=== PATIENT | female | born 1980 | race Caucasian/White ===

== ENCOUNTER 2017-01-11 14:42 | Emergency (ER) | payer OTHER ==
[2017-01-11 14:48] VITALS: BP 107/64
--- NOTE | 2017-01-11 16:38 | UC ---
Throat Pain/Nasal Jalen HPI - HPI Summary HPI Summary: ST starting 3 days ago. ESQUEDA, nausea, chills, denies cough, rash or nasal congestion. Has school-aged children at home. - History of Current Complaint Chief Complaint: UCGeneralIllness Stated Complaint: ST,HEADACHE,NAUSEA Time Seen by Provider: 01/11/17 16:15 Hx Obtained From: Patient Hx Last Menstrual Period: 12/25/16 ?: No Onset/Duration: Gradual Onset, Lasting Days Severity: Moderate Cough: None Associated Signs & Symptoms: Negative: Sinus Discomfort, Nasal Discharge, Fever , Rash - Allergies/Home Medications Allergies/Adverse Reactions: Allergies Allergy/AdvReac Type Severity Reaction Status Date / Time benadryl Allergy Numbness Uncoded 07/26/14 08:46 PMH/Surg Hx/FS Hx/Imm Hx Previously Healthy: Yes - Surgical History Surgical History: Yes Surgery Procedure, Year, and Place: [facility]4 [facility]. WISDOM TEETH REMOVAL - Family History Known Family History: Positive: Hypertension - Social History Lives: With Family Alcohol Use: None Substance Use Type: None Smoking Status (MU): Never Smoked Tobacco - Immunization History Most Recent Influenza Vaccination: unknown Most Recent Tetanus Shot: 02/12/14 Most Recent Pneumonia Vaccination: none Review of Systems Constitutional: Fatigue Skin: Negative Eyes: Negative ENT: Sore Throat Respiratory: Negative Cardiovascular: Negative Gastrointestinal: Negative Genitourinary: Negative Motor: Negative Neurovascular: Negative Musculoskeletal: Negative Neurological: Headache Psychological: Negative All Other Systems Reviewed And Are Negative: Yes Physical Exam Triage Information Reviewed: Yes Appearance: Well-Appearing, No Pain Distress, Well-Nourished Vital Signs: Initial Vital Signs Temp 98.6 F 01/11/17 14:45 Pulse 66 01/11/17 14:45 Resp 16 01/11/17 14:45 BP 107/64 01/11/17 14:45 Pulse Ox 100 01/11/17 14:45 Vital Signs Reviewed: Yes Eye Exam: Normal Eyes: Positive: Conjunctiva Clear ENT: Positive: Hearing grossly normal, TMs normal, Tonsillar swelling, Tonsillar exudate Dental Exam: Normal Neck: Positive: Supple, Enlarged Nodes @ - tonsillar Respiratory Exam: Normal Respiratory: Positive: Chest non-tender, Lungs clear, Normal breath sounds, No respiratory distress, No accessory muscle use Cardiovascular Exam: Normal Cardiovascular: Positive: RRR, No Murmur Musculoskeletal Exam: Normal Neurological Exam: Normal Neurological: Positive: Alert Psychological Exam: Normal Skin Exam: Normal Throat Pain/Nasal Course/Dx - Differential Dx/Diagnosis Provider Diagnoses: strep tonsillitis Discharge - Discharge Plan Condition: Stable Disposition: HOME Prescriptions: Amoxicillin PO (*) [Amoxicillin 875 MG (*)] 875 mg PO BID #20 tab Patient Education Materials: Strep Throat (ED) Referrals: Sree Pratt MD [Primary Care Provider] -
== END 2017-01-11 16:47 | disposition home or self-care (01) ==
LOC: UCEAST 14:42
DX: J03.00 Acute streptococcal tonsillitis, unspecified (principal)
CPT/HCPCS: 87651; 99212; G0463

== ENCOUNTER 2018-04-03 10:50 | Emergency (ER) | payer OTHER ==
--- NOTE | 2018-04-03 11:28 | ED ---
Throat Pain/Nasal Congestion - HPI Summary HPI Summary: Pt. is a 37 y.o female who presents to the office for dental infection and facial swelling. Pt. states she started with dental pain earlier in the week and saw her dentist Saturday and was started on Amoxicillin. Pt. states that infection seemed to be improving until today when she woke up with left side facial swelling and pain. Pt. states she called her dentist and was referred to the ER. Pt. denies fever, chills, N.V. She has no past medical hx. Eating and touching affected area makes sxs worse. Nothing makes sxs better. - History of Current Complaint Chief Complaint: EDRashSkinAbscess Time Seen by Provider: 04/03/18 11:10 Hx Obtained From: Patient - Allergies/Home Medications Allergies/Adverse Reactions: Allergies Allergy/AdvReac Type Severity Reaction Status Date / Time diphenhydramine Allergy Numbness Verified 04/03/18 11:02 [From Benadryl] PMH/Surg Hx/FS Hx/Imm Hx Previously Healthy: Yes Endocrine/Hematology History: Reports: Hx Anemia - new onset, dx just today Denies: Hx Diabetes, Hx Thyroid Disease Cardiovascular History: Denies: Hx Hypertension, Hx Pacemaker/ICD Respiratory History: Denies: Hx Asthma, Hx Chronic Obstructive Pulmonary Disease (COPD) GI History: Denies: Hx Ulcer History: Reports: Hx Renal Disease - abnormal us and gfr 03/2014 acute renal failure dx Sensory History: Denies: Hx Contacts or Glasses, Hx Hearing Aid Opthamlomology History: Denies: Hx Contacts or Glasses Neurological History: Reports: Hx Headaches, Hx Migraine Denies: Hx Dementia, Hx Developmental Delay, Hx Nerve Disease, Hx Seizures, Hx Spinal Cord Injury, Hx Transient Ischemic Attacks (TIA) Psychiatric History: Denies: Hx Panic Disorder - Surgical History Surgery Procedure, Year, and Place: [facility]. WISDOM TEETH REMOVAL Hx Anesthesia Reactions: No Infectious Disease History: No Infectious Disease History: Denies: Hx Clostridium Difficile, Hx Hepatitis, Hx Human Immunodeficiency Virus (HIV), Hx of Known/Suspected MRSA, Hx Shingles, Hx Tuberculosis, Hx Known/ Suspected VRE, Hx Known/Suspected VRSA, History Other Infectious Disease, Traveled Outside the [place] in Last 30 Days - Family History Known Family History: Positive: Hypertension - Social History Occupation: Works From/At Home Lives: With Family Alcohol Use: None Substance Use Type: Reports: None Smoking Status (MU): Never Smoked Tobacco Review of Systems Constitutional: Negative Negative: Fever, Chills Eyes: Negative Positive: Dental Pain Gastrointestinal: Negative Negative: Vomiting, Nausea Skin: Negative All Other Systems Reviewed And Are Negative: Yes Physical Exam Triage Information Reviewed: Yes Vital Signs On Initial Exam: Initial Vitals Temp Pulse Resp BP Pulse Ox 98.2 F 74 16 122/79 100 04/03/18 10:58 04/03/18 10:58 04/03/18 10:58 04/03/18 10:58 04/03/18 10:58 Vital Signs Reviewed: Yes Appearance: Positive: Well-Appearing - Pt. sitting on bed in NAD. Obvious edema noted to the left lower jaw and neck Skin: Positive: Warm, Dry Head/Face: Positive: Other - Moderate amount of edema noted over the left mandible extending below the jaw line. Tender to palpation. Eyes: Positive: Normal, EOMI, Conjunctiva Clear Dental: Positive: Other - Pain on palpation to left last molar without obvious caries. No drainable abscess noted. Mild trismus. No swelling or pain under tongue. Neck: Positive: Supple Neurological: Positive: Normal, CN Intact II-III Psychiatric: Positive: Affect/Mood Appropriate Diagnostics - Vital Signs Vital Signs Temp Pulse Resp BP Pulse Ox 04/03/18 10:58 98.2 F 74 16 122/79 100 - Laboratory Result Diagrams: 04/03/18 11:48 04/03/18 11:48 Lab Statement: Any lab studies that have been ordered have been reviewed, and results considered in the medical decision making process. EENT Course/Dx - Course Course Of Treatment: Patient presenting for evaluation of dental abscess. She is afebrile well-appearing. I do not appreciate a drainable abscess on exam. She does however have swelling that extends under the jawline into her neck. She does have mild trismus as well. We'll obtain basic blood work and CT scan for further evaluation. Patient's given a dose of IV clindamycin and toradol. Labs are unremarkable. On re-exam pt. is resting comfortably. Results discussed. Will switch amoxicillin to clindamycin. Advised NSAID. To call oral sx today for an apt. To return to ER for increased swelling, high fevers, vomiting, difficulty opening mouth, swallowing/breathing. Pt. understands and agrees with plan. CT maxillary per radiology: IMPRESSION: SMALL LOCULATED FLUID COLLECTION ALONG THE LEFT MANDIBULAR BODY, AT THE LEVEL OF A PERIAPICAL ABSCESS OF THE LAST MANDIBULAR MOLAR CONSISTENT WITH AN ODONTOGENIC ABSCESS. THERE IS ASSOCIATED INFLAMMATORY CHANGES ADJACENT SOFT TISSUES. - Differential Diagnoses Differential Diagnoses: Allergic Rhinitis, Cellulitis, Dental Abscess, Dental Caries, Donnie's Angina, Periodontic Abscess - Diagnoses Provider Diagnoses: Dental abscess Discharge - Sign-Out/Discharge Documenting (check all that apply): Patient Departure - Discharge Plan Condition: Good Disposition: HOME Prescriptions: Clindamycin Cap(NF) [Clindamycin Cap 300 mg Cap(NF)] 300 mg PO Q6H #40 cap Naproxen [Naproxen 500 mg tab] 500 mg PO Q12H #20 tablet Patient Education Materials: Dental Abscess (ED) Referrals: Conrad Leach MD [Doctor of Dental Medicine] - Sree Pratt MD [Primary Care Provider] - Curt Lisa MD [Doctor of Dental Medicine] - Additional Instructions: Schedule a follow up appointment with oral surgery Stop amoxicillin and start clindamycin today as directed Naproxen as directed for pain and swelling Apply warm compress Return to ER for fever, vomiting, increased swelling, difficulty swallowing or if concerned - Billing Disposition and Condition Condition: GOOD Disposition: Home
[2018-04-03] MEDS ORDERED: Clindamycin 300 MG IVPREMIX(* 300 MG/50 ML SDV IVPB ONE (11:30)
[2018-04-03] MEDS ORDERED: Ketorolac INJ* 30 MG/ML 1 ML VIAL IV PUSH ONE (11:31)
--- OUTSIDE RECORDS SUMMARY | 2018-04-03 11:31 | XMS REPORT | Continuity of Care Document ---
:1980 External Reference #:[id number] Author Name Hailey Stein MD Address [address] [place] [address] Care Team Providers Name Role Phone Sree Pratt Primary Care Physician Unavailable Payers Type Date Identification Numbers Payment Provider Subscriber Expires: 2010 Policy Number: [id number] Medicaid Mom[employer] Rosi Juarez PayID: [id number] [address] [place] [address] Effective: 2010 Policy Number: [id number] [facility] Rosi Juarez PayID: [id number] [address] [address] [place] [address] Advance Directives Description No Information Available Problems Description No Active Problems Family History Date Family Member(s) Problem(s) Comments Father Hypercholesterolemia Father Hypertension Mother A&W Children 4 First Daughter A&W Second Daughter A&W Third Daughter A&W Fourth Daughter A&W Siblings 2 First Brother A&W Second Brother A&W Paternal Grandfather due to Diabetes () Paternal Grandmother Hypertension Paternal Grandmother due to Heart Disease () Maternal Grandfather due to Unknown Causes () Maternal Grandmother due to Old Age () Social History Type Date Description Comments Sex Unknown Education graduated college Marital Status Single Lives With Father Lives With Daughters Diet Healthy, Well Balanced 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 Tobacco Use Start: Unknown Never Smoked Cigarettes Smoking Status Reviewed: 03/21/18 Never Smoked Cigarettes ETOH Use Denies alcohol use Recreational Drug Use Denies Drug Use Tobacco Use Start: Unknown Patient has never smoked Exercise Type/Frequency Exercises regularly Seat Belt/Car Seat Always uses seat belt Currently Active Patient is currently sexually active Contraceptive Methods Current methods include tubal ligation STD's No STD History RICHY: 03/13/2014 Estimated Date of Based on 1st Delivery Ultrasound Allergies, Adverse Reactions, Alerts Date Description Reaction Status Severity Comments 08/30/2014 Benadryl Active numbness, head pain 07/11/2010 NKDA Inactive Medications Medication Date Status Form Strength Qnty SIG Indications Ordering Provider No Active 10/29/ Active Unknown Medications 2017 Levora 0.15/30 10/22/ Hx Tablets 0.15-30mg- 84tabs take 1 Phaelon (28) 2017 - mcg tab by MD Sarita mouth 2017 every day No Active 10/18/ Hx Unknown Medications 2015 - 2016 Dicloxacillin 05/25/ Hx Capsules 500mg 40caps 1 tablet Pita Sodium 2014 - by mouth Reynaga, 06/05/ every 6 CNM 2014 hours Oxycodone-Aceta 03/03/ Hx Tablets 5-325mg 25tabs take 1-2 Phaelon minophen 2014 - tabs by MD Sarita mouth 2013 q4-6 hours as needed for pain Ibuprofen 03/03/ Hx Tablets 600mg 30tabs take one Phaelon 2014 - tab by MD Sarita mouth 2013 every 6 hours as needed for pain Fluconazole 02/12/ Hx Tablets 150mg 1tabs take one Phaelon 2013 - tab by MD Sarita 02/14/ mouth now 2013 Clotrimazole 01/21/ Hx Cream 1% 15gm 1 gm by Shawn Cardenas 2013 - way of Gelber, 02/14/ vagina M.D. 2013 every night at bedtime x7 Macrobid 12/02/ Hx Capsules 100mg 14caps 1 by January 2013 - mouth Jump, 12/09/ twice a ANP-C 2013 day Ondansetron HCL 08/13/ Hx Tablets 4mg 30tabs 1 po q 6 Judie 2014 - hours prn Virgil, 10/06/ nausea CNM 2013 Plus 08/13/ Hx Tablets 7-0.4-100m 90tabs 1 po qd Judie Dha 2014 - g Portage, 10/17/ CNM 2015 No Active 02/17/ Hx Unknown Medications 2012 - 2013 Flonase 02/13/ Hx Suspension 50mcg/Act Stevanovi 2012 - c, 02/16/ Radomir 2013 Flagyl 09/06/ Hx Tablets 500mg 14tabs 1 po bid Bailey 2012 - x 7 days Desai, 2012 Medications Administered in Office Medication Date Status Form Strength Qnty SIG Indications Ordering Provider PT SCRN Tbco Administered Injection Phaelon Id as Non User 018 MD Sarita Immunizations CPT Code Status Date Vaccine Lot # [id number] Given 03/03/2014 Influenza Virus Vaccine Split Virus Use For [id number] Individual 3Yr Older [id number] Given 02/12/2014 Tetnus, Diptheria Toxoids And Acellular Pertussis, [id number] PT > 7Yrs Old Vital Signs Date Vital Result Comment 03/21/2018 4:04pm BP Systolic 132 mmHg BP Diastolic 78 mmHg Height 56.5 inches 4'8.50" Weight 147.00 lb BMI (Body Mass Index) 32.4 kg/m2 Last Menstrual Period [id number] 5 Parity 4 10/29/2017 10:49am BP Systolic 112 mmHg BP Diastolic 68 mmHg Height 56.5 inches 4'8.50" Weight 146.00 lb BMI (Body Mass Index) 32.2 kg/m2 Last Menstrual Period 8041856 5 Parity 4 10/22/2016 9:36am BP Systolic 98 mmHg BP Diastolic 66 mmHg Height 56.5 inches 4'8.50" Weight 133.00 lb BMI (Body Mass Index) 29.3 kg/m2 Last Menstrual Period 4742063 5 Parity 4 10/19/2015 10:59am BP Systolic 96 mmHg BP Diastolic 68 mmHg Height 56.5 inches 4'8.50" Weight 135.00 lb BMI (Body Mass Index) 29.7 kg/m2 Last Menstrual Period 8053639 5 Parity 4 08/30/2014 11:19am BP Systolic 102 mmHg BP Diastolic 60 mmHg Height 56 inches 4'8" Weight 129.00 lb BMI (Body Mass Index) 28.9 kg/m2 5 Parity 4 04/06/2014 9:33am BP Systolic 108 mmHg BP Diastolic 78 mmHg Height 56.5 inches 4'8.50" Weight 135.00 lb BMI (Body Mass Index) 29.7 kg/m2 Last Menstrual Period 0807287 5 Parity 4 03/22/2014 10:08am BP Systolic 98 mmHg BP Diastolic 64 mmHg Body Temperature 97.5 F Height 56.5 inches 4'8.50" Weight 137.00 lb BMI (Body Mass Index) 30.2 kg/m2 Last Menstrual Period 8770122 4 Parity 4 03/03/2014 10:04am BP Systolic 98 mmHg BP Diastolic 62 mmHg Body Temperature 98.4 F Heart Rate 68 /min Respiratory Rate 16 /min Height 56 inches 4'8" Weight 152.00 lb BMI (Body Mass Index) 34.1 kg/m2 4 Parity 3 08/13/2013 9:48am BP Systolic 108 mmHg BP Diastolic 64 mmHg Height 56 inches 4'8" Weight 129.00 lb BMI (Body Mass Index) 28.9 kg/m2 Last Menstrual Period 7934484 4 Parity 3 04/16/2013 9:40am BP Systolic 100 mmHg BP Diastolic 70 mmHg Height 56 inches 4'8" Weight 130.00 lb BMI (Body Mass Index) 29.1 kg/m2 Last Menstrual Period 4926902 4 Parity 3 02/17/2013 10:23am BP Systolic 100 mmHg BP Diastolic 52 mmHg Height 56 inches 4'8" Weight 128.00 lb BMI (Body Mass Index) 28.7 kg/m2 Last Menstrual Period 0083461 3 Parity 3 02/14/2012 9:28am BP Systolic 100 mmHg BP Diastolic 58 mmHg Height 56 inches 4'8" Last Menstrual Period 4511865 3 Parity 3 05/29/2011 11:03am BP Systolic 90 mmHg BP Diastolic 62 mmHg Height 56 inches 4'8" Weight 129.00 lb BMI (Body Mass Index) 28.9 kg/m2 Last Menstrual Period 7520276 3 Parity 3 08/29/2010 2:24pm BP Systolic 114 mmHg BP Diastolic 72 mmHg Weight 127.00 lb 3 Parity 3 07/28/2010 11:43am BP Systolic 100 mmHg BP Diastolic 58 mmHg Weight 132.00 lb 07/17/2010 2:02pm BP Systolic 110 mmHg BP Diastolic 68 mmHg Weight 144.00 lb Last Menstrual Period 1963816 3 Parity 2 07/11/2010 2:04pm BP Systolic 100 mmHg BP Diastolic 60 mmHg Body Temperature 97.6 F Heart Rate 62 /min Respiratory Rate 16 /min Height 56.50 inches 4'8.50" Weight 142.00 lb BMI (Body Mass Index) 31.3 kg/m2 Last Menstrual Period 0191650 2 Parity 2 Results Test Date Facility Test Result H/L Range Note Laboratory test 10/29/2017 [facility] SEE RESULT 1 [place] [address] BELOW [phone] Laboratory test 08/30/2014 [facility] RUN DATE: 2 finding [place] Colon [address] 08/31/ <SEE [phone] NOTE> Human Papilloma Virus Rna Negative Negative 3 Istat BUN/Crea/Egfr/V 03/26/2014 [facility] Poc Bun 22 mg/dL High 9-18 [facility] [place] [address] [facility] [phone] Poc Crea [facility] 1.1 mg/dL High 0.6-0.9 GFR Non- Ect 57.9 >60 GFR [facility] 74.5 >60 4 Laboratory test 03/09/2014 [facility] Surgical RUN DATE: 5 finding [place] [address] Pathology 03/12/ <SEE [phone] NOTE> Laboratory test 03/09/2014 [facility] RUN DATE: 6 finding [place] [address] Pathology 04/28/ <SEE [phone] NOTE> CBC Auto Diff 03/08/2014 [facility] White Blood 11.1 High 4.8- 1 [place] [address] Count 10^3/uL 0.8 [phone] Red Blood Count 3.81 10^6/uL Low 4.0-5.4 Hemoglobin 11.7 g/dL Low 12.0-16.0 Hematocrit 34 % Low 35-47 Mean Corpuscular Volume 90 fL 80-97 Mean Corpuscular Hemoglobin 31 pg 27-31 Mean Corpuscular HGB Conc 35 g/dL 31-36 Red Cell Distribution Width 14 % 10.5-15 Platelet Count 235 10^3/uL 150-450 Mean Platelet Volume 8 um3 7.4-10.4 Abs Neutrophils 7.6 10^3/uL 1.5-7.7 Abs Lymphocytes 2.7 10^3/uL 1.0-4.8 Abs Monocytes 0.8 10^3/uL 0-0.8 Abs Eosinophils 0 10^3/uL 0-0.6 Abs Basophils 0 10^3/uL 0-0.2 Abs Nucleated RBC 0 10^3/uL Granulocyte % 68.2 % 38-83 Lymphocyte % 23.9 % Low 25-47 Monocyte % 7.2 % 1-9 Eosinophil % 0.4 % 0-6 Basophil % 0.3 % 0-2 Nucleated Red Blood Cells % 0 Type And Screen 03/08/2014 [facility] [place] [address] Type [phone] Antibody Screen NEGATIVE Laboratory test 02/12/2014 [facility] B Strep (SEE NOTE) 7 [place] [address] Culture Screen [phone] Parvovirus B19 01/12/2014 [facility] Parvovirus (B19) 4.71 index <0.90 8 I[place] [address] IgG Antibody [phone] Parvovirus (B19) IgM Antibody 0.21 index <0.90 9 Parvovirus Interpretation See Comment 10 CBC With No 12/16/2013 [facility] White Blood 10.2 10^3/uL 4.8-10[place]8 [place] [address] Count [phone] Red Blood Count 3.64 10^6/uL Low 4.0-5.4 Hemoglobin 11.2 g/dL Low 12.0-16.0 Hematocrit 33 % Low 35-47 Mean Corpuscular Volume 91 fL 80-97 Mean Corpuscular Hemoglobin 31 pg 27-31 Mean Corpuscular HGB Conc 34 g/dL 31-36 Red Cell Distribution Width 14 % 10.5-15 Platelet Count 215 10^3/uL 150-450 Mean Platelet Volume 8 um3 7.4-10.4 Laboratory test 12/16/2013 [facility] Glucose 1 HR 130 mg/dL 70-160 [place] [address] Post Prandial [phone] Laboratory test 11/24/2013 [facility] Rapid Strep A (SEE NOTE) 11 [place] [address] [phone] Throat Beta Strep Culture (SEE NOTE) 12 GC/Chlamydia Dna 09/10/2013 [facility] GC/Chlamydia Rna (SEE NOTE) 13 [place] [address] [phone] Toxoplasma 08/13/2013 [facility] Toxoplasma Igg AB 1.35 High 14 AB(Igg,M),Eia Toxoplasma Igm AB NEGATIVE PNL No 08/13/2013 [facility] Rubella Screen Immune IU/ [place] [address] [phone] Hemoglobin A1c 5.1 % Less than 6.0 15 Hepatitis B Surface Antigen Nonreactive Nonreactive 16 RPR 08/13/2013 [facility] Syphilis [place] [address] [phone] RPR Nonreactive Nonreactive RPR Titer TNP Pediatric/Maternal YES CBC With No 08/13/2013 [facility] White Blood 8.8 10^3/uL 4.8 -10.8 [place] [address] Count [phone] Red Blood Count 3.93 10^6/uL Low 4.0-5.4 Hemoglobin 11.9 g/dL Low 12.0-16.0 Hematocrit 35 % 35-47 Mean Corpuscular Volume 88 fL 80-97 Mean Corpuscular Hemoglobin 30 pg 27-31 Mean Corpuscular HGB Conc 34 g/dL 31-36 Red Cell Distribution Width 14 % 10.5-15 Platelet Count 278 10^3/uL 150-450 Mean Platelet Volume 8 um3 7.4-10.4 Type And Screen 08/13/2013 [facility] [place] [address] Type [phone] Antibody Screen NEGATIVE Urine Culture 08/13/2013 [facility] Urine Culture (SEE NOTE) 17 [place] [address] Sensitivities [phone] HIV 1/2 AB 08/13/2013 [facility] HIV 1 2 Nonreactive Nonreactive 18 [place] [address] Antibody [phone] Laboratory 04/16/2013 [facility] Beta HCG 7.0 MIU/ML High 0.0- 5.0 19 [place] [address] Quantitative [phone] Type And 04/16/2013 [facility] Patient [place] [address] Type [phone] Antibody Screen NEGATIVE Laboratory test 02/17/2013 [facility] Pap See Note 20 finding GC/Chlamydia 02/14/2012 [facility] M [address] [place] [address] -- <SEE NOTE> [phone] Laboratory test 02/14/2012 [facility] Cyt[facility] 22 [place] [address] -- <SEE NOTE> [phone] Herpes Simplex 02/14/2012 [facility] Herpes Simplex Negative Negative 23 Type 1&2 [place] [address] Type 1 2 Igm [phone] Herpes Simplex 02/14/2012 [facility] Herpes Simplex Negative Negative Type 1&2 [place] [address] Type 1 Igg [phone] Herpex Simplex Type 2 Igg Positive Negative 24 Vad 02/14/2012 [facility] Vad Final Nonreactive Nonreactive 25 [place] [address] [phone] Syphilis 02/14/2012 [facility] Syphilis IgG NON-REACTIVE Nonreactive 26 [place] [address] [phone] RPR TNP Nonreactive Pediatric/Maternal NO Laboratory test 05/29/2011 [facility] Cytology 27 [place] [address] <SEE NOTE> [phone] CBC With 07/20/2010 [facility] White Blood 10.7 CUMM 4.8- [place] [address] Count 10.8 [phone] Red Cell Count 3.76 CUMM Low 4.2-5.4 Hemoglobin 11.6 g/dL Low 12.0-16.0 Hematocrit 34 % Low 35-47 Mean Corpuscular Volume 91 um3 79-97 Mean Corpuscular Hemoglob 31 pg 27-31 Mean Corpuscular HGB Cone 34 g/dL 32-36 Redcell Distribution WDTH 14 % 10.5-15 Platelet Count 243 CUMM 150-450 Mean Platelet Volume 8.6 um3 7.4-10.4 Gran % 68.4 % 38-83 Lymph % 25.4 % 25-47 Mononuclear % 5.7 % 1-9 Eosinophil % 0.3 % 0-6 Basophil % 0.2 % 0-2 Abs Lymphs 2.7 1.0-4.8 Abs Mononuclear 0.6 0-0.8 Absolute Neutrophil Count 7.3 1.5-7.7 Abs Eosinophils 0 0-0.6 Abs Basophils 0 0-0.2 Type & Screen 07/20/2010 [facility] Patient Blood Type AB POSITIVE [place] [address] [phone] Antibody Screen NEGATIVE Preadmit Type & 07/20/2010 [facility] Patient Blood AB POSITIVE Screen [place] [address] Type [phone] Antibody Screen NEGATIVE Specimen Discard Date 07/23/10 28 Rhogam 07/06/2010 [facility] Patient Blood Type AB POSITIVE [place] [address] [phone] Antibody Screen NEGATIVE CBC With 07/06/2010 [facility] White Blood 14.6 CUMM High 4.8- 10.8 [place] [address] Count [phone] Red Cell Count 3.52 CUMM Low 4.2-5.4 Hemoglobin 10.9 g/dL Low 12.0-16.0 Hematocrit 32 % Low 35-47 Mean Corpuscular Volume 91 um3 79-97 Mean Corpuscular Hemoglob 31 pg 27-31 Mean Corpuscular HGB Cone 34 g/dL 32-36 Redcell Distribution WDTH 13 % 10.5-15 Platelet Count 255 CUMM 150-450 Mean Platelet Volume 8.3 um3 7.4-10.4 29 Manual Differential 07/06/2010 [facility] Polysegmented 72 % 38-83 [place] [address] Neutrophil [phone] Lymphocyte 25 % 25-47 Monocyte 3 % 0-13 Absolute Neutrophil Count 10.5 RBC Morphology NORMAL Laboratory 07/06/2010 [facility] Syphilis NON-REACTIVE Nonreactive 30 [place] [address] IgG [phone] Hep BS Ag Infection CT Nonreactive Negative Vad 07/06/2010 [facility] Vad Final NONREACTIVE Nonreactive 31 [place] [address] [phone] Laboratory 07/06/2010 [facility] Amnisure NO MEMBRANE 32 [place] [address] RUPT <SEE NOTE> [phone] Rubella Screen IMMUNE Immune Urine Drug 07/06/2010 [facility] Amphetamines NONE DETECTED None SCR [place] & [place] [address] Urine Screen Detect Pain Clinic [phone] Barbituates Urine Screen NONE DETECTED None Detect Benzodiazepine Ur Screen NONE DETECTED None Detect Cannabinoid Urine Screen NONE DETECTED None Detect Cocaine Metabolites Urine NONE DETECTED None Detect Opiates Urine Screen NONE DETECTED None Detect PCP Urine Screen NONE DETECTED None Detect 33 Urine Culture & 07/06/2010 [facility] Urine Culture NG [address] [place] [address] Sensitivi [phone] 1 SEE RESULT BELOW Name: ROSI JUAREZ : [address]: Hailey Stein MD Acct: [id number] Unit: [id number] AGE: 36 Location: [facility] Re10/29/17 SEX: F Status: REG REF SPEC: [id number] JOHANNE: 10/29/17-1148 [facility] DR: Hailey Stein MD REQ: [id number] RECD: 10/29/177345 STATUS: BORIS MAHARAJ DR: Sree Pratt MD PC _ ORDERED: TP IMAGE ANALYS, HPV/Thin Prep COMMENTS: [id number] Negative for Intraepithelial lesion or Malignancy A. Ectocervical/Endocervical Specimen Adequacy: Satisfactory of evaluation Transformation zone component identified Patient Information: HPV: High risk HPV RNA testing regardless of pap results. Actual Specimen Date: 10/29/17 Last Menstrual Date: 10/12/17 Date of Last Specimen: 08/30/14 Date Time Test Result Flag (u) Normal Range 10/29/17 1148 @ HPV RNA Negative Negative @ @ The high-risk HPV types detected by the assay include: 16, @ 18, 31, 33, 35, 39, 45, 51, 52, 56, 58, 59, 66, and 68. Signed by and Reported on: [place], [place] ([facility]) 1120 This Pap test was evaluated with the assistance of the [employer] Test Imaging System. Due to cytologic findings at the clam sorter microscope, comprehensive manual rescreening by a Army Ranger may be required. The Pap Smear is a screening test designed to aid in the detection of premalignant and malignant conditions of the uterine cervix. It is not a diagnostic procedure and should not be used as the sole means of detecting cervical cancer. Both false- positive and false- negative reports do occur. Depending on your risk status, a Pap smear should be obtained and evaluated every 1-3 years. END OF REPORT DEPARTMENT OF PATHOLOGY, [facility] [employer] [place], [place] [address] Daniel Abernathy M.D. Director [place]OODCRISTHIAN # [id number] 2 RUN DATE: 08/31/14 [facility] LAB LIVE PAGE 1 RUN TIME: 1411 [facility] [employer] [place], [place] [address] Specimen Inquiry Name: ROSI JUAREZ : [address]: Hailey Stein MD Acct: [id number] Unit: [id number] AGE: 33 Location: [facility] Re08/30/14 SEX: F Status: REG REF SPEC: [id number] JOHANNE: 08/30/14-1147 [facility] DR: Hailey Stein MD REQ: [id number] RECD: 08/30/14 STATUS: SOUT _ ORDERED: IMAGE ANALYSIS, HPV/Thin Prep FINAL DIAGNOSIS Negative for Intraepithelial lesion or Malignancy A. Ectocervical/Endocervical Specimen Adequacy: Satisfactory of evaluation Transformation zone component identified Patient Information: HPV: High risk HPV RNA testing regardless of pap results. Actual Specimen Date: 08/30/14 Last Menstrual Date: 06/12/13 Date of Last Specimen: 02/17/13 Date Time Test Result Flag (u) Normal Range 08/30/14 1147 HPV RNA Negative Negative The high-risk HPV types detected by the assay include: 16, 18, 31, 33, 35, 39, 45, 51, 52, 56, 58, 59, 66, and 68. Signed (signature on file) [facility] [place] ([facility]) 08/31 1411 This Pap test was evaluated with the assistance of the [employer] Test Imaging System. Due to cytologic findings at the clam sorter microscope, comprehensive manual rescreening by a Army Ranger may be required. The Pap Smear is a screening test designed to aid in the detection of premalignant and malignant conditions of the uterine cervix. It is not a diagnostic procedure and should not be used as the sole means of detecting cervical cancer. Both false- positive and false- negative reports do occur. Depending on your risk status, a Pap smear should be obtained and evaluated every 1-3 years. END OF REPORT * ML=Testing performed at Main Lab DEPARTMENT OF PATHOLOGY, [address] [place], [place] [address] Daniel Abernathy M.D. Director [facility] # [id number] 3 The high-risk HPV types detected by the assay include: 16, 18, 31, 33, 35, 39, 45, 51, 52, 56, 58, 59, 66, and 68. 4 Because ethnic data is not always readily available, this report includes an eGFR for both -Americans and non- Americans. The National Kidney Disease Education Program (NKDEP) does not endorse the use of the MDRD equation for patients that are not between the ages of 18 and 70, are , have extremes of body size, muscle mass, or nutritional status, or are non- or non-. According to the National Kidney Foundation, irrespective of diagnosis, the stage of the disease is based on the level of kidney function: Stage Description GFR(mL/min/1.73 m(2)) 1 Kidney damage with normal or decreased GFR 90 2 Kidney damage with mild decrease in GFR 60-89 3 Moderate decrease in GFR 30-59 4 Severe decrease in GFR 15-29 5 Kidney failure <15 (or dialysis) 5 RUN DATE: 03/12/14 [facility] LAB LIVE PAGE 1 RUN TIME: [address] [place] [address] Specimen Inquiry Name: ROSI JUAREZ Jay : [address]: Hailey Stein MD Acct: [id number] Unit: [id number] AGE: 33 [address]: [address] Re03/09/14 Dis: 03/11/14 SEX: F Status: DIS IN SPEC: [id number] JOHANNE: 03/09/[address]: Hailey Stein MD REQ: [id number] RECD: 03/09/14 STATUS: SOUT _ ORDERED: LEVEL IV/2, LEVEL V FINAL DIAGNOSIS 1. Left fallopian tube, left ovary, and left ovarian cyst, salpingectomy, oophorectomy, and cystectomy: Borderline mucinous tumor involving ovary; see comment. Benign fallopian tube with no significant pathologic abnormalities. 2. Fallopian tube, right, salpingectomy: Completely transected segment of benign fallopian tube with no significant pathologic abnormalities. COMMENT: The ovary is involved by a cystic neoplasm composed predominantly of cytologically bland mucinous cells. Focally, mucinous cells are hyperchromatic with pseudostratification. No areas of invasion are identified in the exhaustively sampled specimen. PRE-OPERATIVE DIAGNOSIS Repeat section; bilateral tubal ligation GROSS DESCRIPTION 1. The specimen is received in formalin labeled Rosi Juarez, Portion of Left Fallopian Tube, Left Ovary, and Left Ovarian Cyst, and consists of two romero-pink irregular rubbery portions of tissue measuring 4.0 x 3.0 x 0.3 cm. and 4.6 x 3.1 x 2.2 cm. The largest portion is consistent with a previously disrupted ovary and has an adherent 3.3 x 0.7 cm. portion of romero-pink, fimbriated fallopian tube. The outer CONTINUED ON NEXT PAGE * ML=Testing performed at Main Lab DEPARTMENT OF PATHOLOGY, [facility] [employer] [place], [place] [address] Daniel Abernathy M.D. Director [employer] # [id number] RUN DATE: 03/12/14 [facility] LAB LIVE PAGE 2 RUN TIME: [address] [place] [address] Specimen Inquiry Patient: ROSI JUAREZ [id number] (Continued) GROSS DESCRIPTION (Continued) GROSS DESCRIPTION (Continued) surface of the fallopian tube is glistening, smooth, romero-pink, and the cut surface is grossly unremarkable. The cut surface of the ovary is rubbery romero-pink, and focally cystic with a few scattered corpora albicantia. The separately received smaller portion of tissue has a smooth lining and the wall averages 0.1 cm. No excrescences are identified. The specimen is sectioned and sales representative adding machines sections are submitted in cassettes A through I to include fallopian tube in cassette A and the entirety of the ovary and separately received tissue in cassette B through I. 2. The specimen is received in formalin labeled Rosi Juarez, Portion of Right Fallopian Tube, and consists of a 1.9 x 0.5 cm. romero-pink tubular portion of fallopian tube. No fimbria are identified. The serosa is glistening, smooth, romero-pink with rare focal paratubal cysts. The cut surface is grossly unremarkable. The specimen is sectioned and sales representative adding machines sections are submitted in one cassette. Signed (signature on file) Toshia Pagan MD 08/21 1430 6 RUN DATE: 04/28/14 [facility] LIVE PAGE 1 RUN TIME: [address] [place] [address] Specimen Inquiry Name: ROSI JUAREZ : [address]: Hailey Stein MD Acct: [id number] Unit: [id number] AGE: 33 Location: [place] [address] Re03/09/14 Dis: 03/11/14 SEX: F Status: DIS IN SPEC: [id number] JOHANNE: 03/09/14 [facility] DR: Hailey Stein MD REQ: [id number] RECD: 03/09/14 STATUS: SOUT _ ORDERED: QUINONES CONSULT, PTH HANDLING CH, LEVEL IV/2, LEVEL V, Ki67 THIS IS A CORRECTED REPORT 04/28/14 Corrected Report Consultation with Dr. Doris Jade at [facility], [place], [place], outside accession number [id number], our surgical [id number] reported on 04/27/14 and received on . Original consultation report scanned into Pathology Consults. 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 Fallopian tube, right, salpingectomy ([id number]; part 2; 03/09/2014): Complete cross section of benign fallopian tube. Diagnosis Comment: Thank you for allowing me to review the consultation case of Rosi Juarez, a 33 year old woman who underwent left salpingo-oophorectomy and right salpingectomy. I had the opportunity to review this case because of my interest in gynecologic pathology. This is in follow-up to the telephone message left by my surgical pathology resident, Dr. Maria Luisa Stephens, on April 26, 2014. The left salpingo-oophorectomy specimen demonstrates a mucinous epithelial lesion of the ovary characterized by cystic spaces that are lined by a single layer of tall columnar cells with bland basal nuclei. A small focus of cytologically bland mucinous cells demonstrates hyperchromasia with a slight amount of nuclear stratification. Ki67 and p53 were performed on the block demonstrating these atypical characteristics and failed to demonstrate features concerning for borderline tumor. Specifically, Ki67 did not demonstrate a significantly increased proliferation index and p53 did not demonstrate increased staining. While the area of hyperchromasia does differ from the remainder of the tumor it is significantly less than 10% of the lesion and therefore does not qualify for a mucinous borderline tumor. CONTINUED ON NEXT PAGE * ML=Testing performed at Main Lab DEPARTMENT OF PATHOLOGY, [facility] [employer] [place], [place] [address] Daniel Abernathy M.D. Director [facility] # [id number] RUN DATE: 04/28/14 [facility] LAB LIVE PAGE 2 RUN TIME: 9872 [facility] [employer] [place], [place] [address] Specimen Inquiry Patient: ROSI JUAREZ [id number] (Continued) ADDENDUM (Continued) Addendum Signed (signature on file) Toshia Pagan MD 1529 FINAL DIAGNOSIS 1. 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 Benign fallopian tube with no significant pathologic abnormalities. 2. Fallopian tube, right, salpingectomy: Completely transected segment of benign fallopian tube with no significant pathologic abnormalities. COMMENT: The ovary is involved by a cystic neoplasm composed predominantly of cytologically bland mucinous cells. Focally, mucinous cells are hyperchromatic with pseudostratification. No areas of invasion are identified in the exhaustively sampled specimen. P53 and ki67 immunostains, with appropriate controls, show mildly increased staining in the areas of concern. This diagnosis has been revised based on second opinion consultation. Dr. Abernathy reviewed this case in intradepartmental consultation and agrees with the diagnosis. PRE-OPERATIVE DIAGNOSIS Repeat section; bilateral tubal ligation CONTINUED ON NEXT PAGE * ML=Testing performed at Main Lab DEPARTMENT OF PATHOLOGY, [address] [place] [address] Daniel Abernathy M.D. Director [facility] # [id number] RUN DATE: 04/28/14 [facility] LAB LIVE PAGE 3 RUN TIME: [address] [place] [address] Specimen Inquiry Patient: ROSI JUAREZ [id number] (Continued) GROSS DESCRIPTION (Continued) GROSS DESCRIPTION 1. The specimen is received in formalin labeled Rosi Juarez, Portion of Left Fallopian Tube, Left Ovary, and Left Ovarian Cyst, and consists of two romero-pink irregular rubbery portions of tissue measuring 4.0 x 3.0 x 0.3 cm. and 4.6 x 3.1 x 2.2 cm. The largest portion is consistent with a previously disrupted ovary and has an adherent 3.3 x 0.7 cm. portion of romero-pink, fimbriated fallopian tube. The outer surface of the fallopian tube is glistening, smooth, romero-pink, and the cut surface is grossly unremarkable. The cut surface of the ovary is rubbery romero-pink, and focally cystic with a few scattered corpora albicantia. The separately received smaller portion of tissue has a smooth lining and the wall averages 0.1 cm. No excrescences are identified. The specimen is sectioned and sales representative adding machines sections are submitted in cassettes A through I to include fallopian tube in cassette A and the entirety of the ovary and separately received tissue in cassette B through I. 2. The specimen is received in formalin labeled Rosi JayAra Juarez, Portion of Right Fallopian Tube, and consists of a 1.9 x 0.5 cm. romero-pink tubular portion of fallopian tube. No fimbria are identified. The serosa is glistening, smooth, romero-pink with rare focal paratubal cysts. The cut surface is grossly unremarkable. The specimen is sectioned and sales representative adding machines sections are submitted in one cassette. Signed (signature on file) Toshia Pagan MD 1714 END OF REPORT * ML=Testing performed at Main Lab DEPARTMENT OF PATHOLOGY, [facility] [employer] [place] [address] Daniel Abernathy M.D. Director [facility] # [id number] RUN DATE: 02/14/14 [facility] LAB LIVE PAGE 1 RUN TIME: [address] [place] [address] Specimen Inquiry Name: ROSI JUAREZ : [address]: Hailey Stein MD Acct: [id number] Unit: [id number] AGE: 33 Location: [facility] Re02/12/14 SEX: F Status: REG REF SPEC: [id number] JOHANNE: 02/12/14 [facility] DR: Hailey Stein MD REQ: [id number] RECD: 02/12/14 STATUS: COMP _ SOURCE: CER/VAG/RE SPDESC: ORDERED: Grp B Strp Scrn QUERIES: Is Patient Penicillin Allergic? N Medent Number [id number] Procedure Result Verified Site Group B Strep Culture Screen Final 02/14/14- 1001 ML Group B Strep Screen Negative END OF REPORT * ML=Testing performed at Main Lab DEPARTMENT OF PATHOLOGY, [address] [place] [address] Daniel Abernathy M.D. Director [facility] # [id number] Positive 9 Negative 10 RESULT: Results suggest past infection. Test Performed by: [facility] - [address] [address] Injection Molding Machine Operator: Joseluis Montaño III, M.D. 11 RUN DATE: 11/24/13 [facility] LAB LIVE PAGE 1 RUN TIME: [address] [place] [address] Specimen Inquiry Name: ROSI JUAREZ : [address]: Shawn Putnam MD Acct: [id number] Unit: [id number] AGE: 32 Location: [facility] Re11/24/13 SEX: F Status: REG REF SPEC: [id number] JOHANNE: 11/24/13 [facility] DR: Shawn Putnam MD REQ: [id number] RECD: 11/24/13 STATUS: COMP _ SOURCE: THROAT SPDESC: ORDERED: Rapid Strep A QUERIES: Medent Number [id number] Procedure Result Verified Site Rapid Strep A Final 11/24/13- 1911 ML Organism 1 Negative Strep Group A Antigen testing by enzyme immunoassay. The floor covering contractor and regulatory agencies both recommend that a throat culture for beta strep be performed if a Rapid Group A Strep assay yields a negative result. Therefore a culture will be automatically performed on all negative samples. END OF REPORT * ML=Testing performed at Main Lab DEPARTMENT OF PATHOLOGY, [facility] [employer] [place] [address] Daniel Abernathy M.D. Director [facility] # [id number] RUN DATE: 11/26/13 [facility] LAB LIVE PAGE 1 RUN TIME: 0800 [facility] [employer] [place], [place] [address] Specimen Inquiry Name: ROSI JUAREZ : [address]: Shawn Putnam MD Acct: [id number] Unit: [id number] AGE: 33 Location: [facility] Re11/24/13 SEX: F Status: REG REF SPEC: [id number] JOHANNE: 11/24/[address]: Shawn Putnam MD REQ: [id number] RECD: 11/24/13 STATUS: COMP _ SOURCE: THROAT SPDESC: ORDERED: Rapid Strep A, Throat Beta Str QUERIES: Medent Number [id number] Procedure Result Verified Site Rapid Strep A Final 11/24/13- 1912 ML Organism 1 Negative Strep Group A Antigen testing by enzyme immunoassay. The floor covering contractor and regulatory agencies both recommend that a throat culture for beta strep be performed if a Rapid Group A Strep assay yields a negative result. Therefore a culture will be automatically performed on all negative samples. Throat Beta Strep Culture Final 11/26/13- 0800 ML Negative For Group A Beta Streptococcus END OF REPORT * ML=Testing performed at Main Lab DEPARTMENT OF PATHOLOGY, [facility] [employer] [place], [place] [address] Daniel Abernathy M.D. Director [facility] # [id number] RUN DATE: 09/11/13 [facility] LAB LIVE PAGE 1 RUN TIME: 1350 [facility] [employer] [place], [place] [address] Specimen Inquiry Name: ROSI JUAREZ : [address]: Alisa Smith NP Acct: [id number] Unit: [id number] AGE: 32 Location: [facility] Re09/10/13 SEX: F Status: REG REF SPEC: [id number] JOHANNE: 09/10/13-[address]: Alisa Smith NP REQ: [id number] RECD: 09/10/13-160 STATUS: COMP _ SOURCE: URINE SPDESC: ORDERED: GC/Chlam RNA QUERIES: Medent Number [id number] Procedure Result Verified Site Chlamydia Trachomatis RNA Final 09/11/13- 1350 ML NEGATIVE for Chlamydia trachomatis rRNA GC (N. gonorrhoeae) RNA Final 09/11/13- 1350 ML NEGATIVE for Neisseria gonorrhoeae rRNA A negative result does not preclude the presence of a C. trachomatis or N. gonorrhoeae infection because results are dependent on adequate specimen collection, absence of inhibitors, and sufficient rRNA to be detected. Test results may be affected by improper specimen collection, improper storage, technical error, or specimen mixup. Limitations of the Procedure: The Aptima Combo 2 Assay is not intended for the evaluation of suspected sexual abuse or for other medico-legal indications. For those patients for whom a false positive result may have adverse psychosocial impact, the [facility] recommends retesting by a method using an alternate technology. Therapeutic failure or success cannot be determined with the Aptima Combo 2 Assay since nucleic acid may persist following appropriate antimicrobial therapy. Results from the Aptima Combo 2 Assay should be interpreted in conjunction with other laboratory and clinical data available to the clinican. CONTINUED ON NEXT PAGE * ML=Testing performed at Main Lab DEPARTMENT OF PATHOLOGY, [address] [place] [address] Daniel Abernathy M.D. Director [facility] Permit #[id number] RUN DATE: 09/11/13 [facility] LAB LIVE PAGE 2 RUN TIME: [address] [place] [address] Specimen Inquiry Patient: ROSI JUAREZ [id number] (Continued) Specimen: [id number] Collected: 09/10/13 Received: 09/10/13-1601 (Continued) Procedure Result Verified Site GC (N. gonorrhoeae) RNA Final (continued) 09/11/13- 1350 Performance characteristics for detecting C. trachomatis and N. gonorrhoeae are derived from high prevalence populations. Positive results in low prevalence populations should be interpreted carefully with the understanding that the likelihood of a false positive may be higher than a true positive. END OF REPORT * ML=Testing performed at Main Lab DEPARTMENT OF PATHOLOGY, [facility] [employer] [place], [place] [address] Daniel Abernathy M.D. Director [facility] Permit #[id number] INDEX VALUE RESULTS INTERPRETATION ------- < OR=0.90 NEGATIVE NO TOXOPLASMA IGG ANTIBODY DETECTED 0.91 - 1.09 EQUIVOCAL PRESENCE OR ABSENCE OF TOXOPLASMA IGG ANTIBODY CANNOT BE DISCERNED > OR=1.10 POSITIVE TOXOPLASMA IGG ANTIBODY DETECTED A positive result indicates infection with Toxoplasma gondii at some time, but does not differentiate between an active or past infection. 15 Therapeutic target for the treatment of diabetes Mellitus patients is <7% HBA1C, and in selective patients <6.0%.Please refer to [place] [employer] Diabetic care guidelines for further information. 16 YES 17 RUN DATE: 08/15/13 [facility] LAB LIVE PAGE 1 RUN TIME: 4994 [facility] [employer] [place], [place] [address] Specimen Inquiry Name: ROSI JUAREZ : [address]: Judie Herman [facility] Acct: [id number] Unit: [id number] AGE: 32 Location: [facility] Re08/13/13 SEX: F Status: REG REF SPEC: [id number] JOHANNE: 08/13/13-[address]: Judie Herman [facility] REQ: [id number] RECD: 08/13/13 STATUS: COMP _ SOURCE: URINE SPDESC: ORDERED: Urine Culture QUERIES: Medent Number [id number] Procedure Result Verified Site Urine Culture Final 08/15/13- 1027 ML Organism 1 NORMAL [place] Count 1-10,000 (Few) CFU/ML END OF REPORT * ML=Testing performed at Main Lab DEPARTMENT OF PATHOLOGY, [address] [place] [address] Daniel Abernathy M.D. Director [facility] Permit #[id number] It is recognized that currently available assays for the detection of antibodies to HIV-1 and/or HIV-2 may not detect all infected individuals. HIV antibodies may be undetectable in some stages of the infection and in some clinical conditions. The performance of this assay has not been established for populations of infants or children. Assayed by Chemiluminescence Microparticle Immunoassay on the Siemens Advia Centaur CP. Values obtained with different methods or kits cannot be used interchangeably.The diagnostic specificity of the ADVIA Centaur 1/O/2 Enhanced assay in the low risk population was 99.90% (6052/6058) with a 95% confidence interval of 99.78 to 99.96%. 19 Males: < 5.0 miu/ml Non females < 5.0 miu/ml Approx gestational age approx HCG range 0-1 week < 5.0-50 1-2 weeks 50-500 2-3 weeks 100-5000 3-4 weeks 500-10,000 1-2 months 10,000-200,000 2-3 months 15,000-100,000 Please note: The intended use of this assay is the quantitative determination of HCG in human serum or plasma for the early detection of . These assays should not be used to diagnose any condition unrelated to . If an HCG level is inconsistent with, or unsupported by, clinical evidence, results should be confirmed by an alternate HCG method. 20 Cytology Laboratory [address] [place] [address], [address] [place] [address] CYTOLOGY REPORT Name: Rosi Juarez : 1980 (Age: 32) Sex: F Location: [facility] Med. Rec. # [id number] Date Collected: 02/17/2013 Billing #: [id number] Date Received: 02/17/2013 Requisition # [id number] Physician(s): LOLA ORTEGA Source of Specimen: ENDOCERVICAL/THIN PREP Clinical Information: Date of Last Menstrual Period: 02/11/13 Menstrual History: Regular Specimen Adequacy: SATISFACTORY FOR EVALUATION. ADEQUATE ENDOCERVICAL/TRANSFORMATION ZONE. General Categorization: NEGATIVE FOR INTRAEPITHELIAL LESION OR MALIGNANCY. Descriptive Evaluation: FUNGAL ORGANISMS MORPHOLOGICALLY CONSISTENT WITH ANANT SP. mas Electronic Signature Darby Garcia, CT (ASCP) Reported: 02/19/2013 Also seen by :Yas Chen, CT (ASCP) Cytology [facility] ICD-9 Code(s) V76.2 A: 112.1 21 RUN DATE: 02/15/12 [facility] NMI LIVE PAGE 1 RUN TIME: 1310 Specimen Inquiry RUN USER: INTERFACE Name: ROSI JUAREZ Status: REG REF Re02/14/12 Age/Sex: 31/F Unit#: [id number] Location: [facility] : [birth year] SPEC #: [id number] JOHANNE: 02/14/12-1014 STATUS: COMP REQ #: [id number] RECD: 02/14/12-1446 [facility] DR: Alisa Smith NP SOURCE: THIN PREP ENTR: 02/14/12-[address]: NAVID: ORDERED: GC/CHL APTIMA QUERIES: MEDENT REQUISITION # [id number] ACT WKST: GCCHL 02/15/12 #1 Procedure Result Verified Site > CHLAMYDIA TRACHOMATIS RNA Final 02/15/12- 1310 ML NEGATIVE FOR CHLAMYDIA TRACHOMATIS rRNA A negative result does not preclude the presence of a C.trachomatis or N.gonorrhoeae infection because results are dependent on adequate specimen collection, absence of inhibitors, and sufficient rRNA to be detected. Test results may be affected by improper specimen collection, improper specimen storage, technical error, or specimen mixup. Limitations of the Procedure: The Aptima Combo 2 Assay is not intended for the evaluation of suspected sexual abuse or for other medico-legal indications. For those patients for whom a false positive result may have adverse psychosocial impact, the [facility] recommends retesting by a method using an alternate technology. Therapeutic failure or success cannot be determined with the Aptima Combo 2 Assay since nucleic acid may persist following appropriate antimicrobial therapy. Results from the APTIMA Combo 2 Assay should be interpreted in conjunction with other laboraotry and clinical data available to the clinician. Performance characteristics for detecting C. trachomatis and N. gonorrhoeae are derived from high prevalence populations. Positive results in low prevalence populations should be interpreted carefully with the understanding that the likelihood of a false positive may be higher than a true positive. DEPARTMENT OF PATHOLOGY, [address] [place] [address] [facility] Permit #[id number] Tamara Chua M.D. Nursing Home Social Worker RUN DATE: 02/15/12 [facility] NMI LIVE PAGE 2 RUN TIME: 1310 Specimen Inquiry RUN USER: INTERFACE Name: ROSI JUAREZ Status: REG REF Re02/14/12 Age/Sex: 31/F Unit#: [id number] Location: [facility]. : [birth year] -- -- CONTINU ED Procedure Result Verified Site > GC (N. GONORRHOEAE) RNA Final 02/15/12- 1310 ML NEGATIVE FOR NEISSERIA GONORRHOEAE rRNA A negative result does not preclude the presence of a C.trachomatis or N.gonorrhoeae infection because results are dependent on adequate specimen collection, absence of inhibitors, and sufficient rRNA to be detected. Test results may be affected by improper specimen collection, improper specimen storage, technical error, or specimen mixup. Limitations of the Procedure: The Aptima Combo 2 Assay is not intended for the evaluation of suspected sexual abuse or for other medico-legal indications. For those patients for whom a false positive result may have adverse psychosocial impact, the [facility] recommends retesting by a method using an alternate technology. Therapeutic failure or success cannot be determined with the Aptima Combo 2 Assay since nucleic acid may persist following appropriate antimicrobial therapy. Results from the APTIMA Combo 2 Assay should be interpreted in conjunction with other laboraotry and clinical data available to the clinician. Performance characteristics for detecting C. trachomatis and N. gonorrhoeae are derived from high prevalence populations. Positive results in low prevalence populations should be interpreted carefully with the understanding that the likelihood of a false positive may be higher than a true positive. [facility] Permit #[id number] [address] [place] [address] DEPARTMENT OF PATHOLOGY, [address] [place] [address] [facility] Permit #[id number] Daniel Abernathy M.D. Director Juno Booth M.D. Nursing Home Social Worker 22 ---- RUN DATE: 02/15/12 [facility] NMI LIVE PAGE 1 RUN TIME: 1516 Specimen Inquiry RUN USER: INTERFACE -- Name: ROSI JUAREZ Status: REG REF Re02/14/12 Age/Sex: 31/F Unit#: [id number] Location: [facility] : [birth year] -- Specimen: [id number] Spec Date:02/14/12-[address]: Alisa Smith NP Spec Type: CYTOLOGY Received:02/15/12-904 Copies to: SOURCE ECTOCERVICAL/ENDOCERVICAL Thin Prep with Reflex HPV Test PATIENT INFORMATION ACTUAL COLLECTION DATE: 02/14/12 PREVIOUS ABNORMAL PAP SMEARS Yes If YES, diagnosis: Prior to 07/21 LAST MENSTRUAL PERIOD: 01/20/12 ADEQUACY OF SPECIMEN Satisfactory for evaluation * Transformation zone component identified * DIAGNOSIS NEGATIVE FOR INTRAEPITHELIAL LESION OR MALIGNANCY * Shift in [place] suggestive of bacterial vaginosis * This Pap test was evaluated with the assistance of the ThinPrep Pap Test Imaging System. The Pap Smear is a screening test designed to aid in the detection of premalign ant and malignant conditions of the uterine cervix. It is not a diagnostic procedure a nd should not be used as the sole means of detecting cervical cancer. Both false- positiv e and false-negative reports do occur. Depending on your risk status, a Pap smear eulalia uld be obtained and evaluated every one to three years. Initial evaluation performed by Jovanni TABARES(ASC) 02/15/12 Final Interpretation electronically signed by: Jovanni TABARES(ASC) 02/15/12 1517 -- -- DEPARTMENT OF PATHOLOGY, [address] [place] [address] [facility] Permit #[id number] Daniel Abernathy M.D. Director Juno Booth M.D. Assistant Dir whitten -- 23 The performance of this assay has not been established for use in neonates, infants or on cord blood. Test Performed by: [facility] [place] [address] Injection Molding Machine Operator: Joseluis Montaño III, M.D. 24 Test Performed by: [facility] - [address] [address] Injection Molding Machine Operator: Joseluis Montaño III, M.D. 25 It is recognized that currently available assays for the detection of antibodies to HIV-1 and/or HIV-2 may not detect all infected individuals. HIV antibodies may be undetectable in some stages of the infection and in some clinical conditions. The performance of this assay has not been established for populations of infants or children. Assayed by Chemiluminescence Microparticle Immunoassay on the [employer] Advia Neoprospectaaur CP. Values obtained with different methods or kits cannot be used interchangeably.The diagnostic specificity of the ADVIA Centaur 1/O/2 Enhanced assay in the low risk population was 99.90% (6052/6058) with a 95% confidence interval of 99.78 to 99.96%. 26 Warning: A positive result is not useful for establishing a diagnosis of syphilis. In most situations, such a result may reflect a prior treated infection; a negative result can exclude a diagnosis of syphilis except for incubating or early primary disease. 27 ---- RUN DATE: 05/30/11 [facility] NMI LIVE PAGE 1 RUN TIME: 1446 Specimen Inquiry RUN USER: INTERFACE -- Name: ROSI JUAREZ Status: REG REF Re05/29/11 Age/Sex: 30/F Unit#: [id number] Location: [facility] : [birth year] -- Specimen: [id number] Spec Date: 05/29/[address]: Alisa Smith NP Spec Type: CYTOLOGY Received: 05/30/11-1032 Copies to: SOURCE ECTOCERVICAL/ENDOCERVICAL Thin Prep with Reflex HPV Test PATIENT INFORMATION ACTUAL COLLECTION DATE: 05/29/11 PREVIOUS ABNORMAL PAP SMEARS Yes LAST MENSTRUAL PERIOD: 05/22/11 PATIENT HISTORY: Prior 07/21 ADEQUACY OF SPECIMEN Satisfactory for evaluation * Transformation zone component identified * DIAGNOSIS NEGATIVE FOR INTRAEPITHELIAL LESION OR MALIGNANCY * This Pap test was evaluated with the assistance of the ThinPrep Pap Test Imaging System. The Pap Smear is a screening test designed to aid in the detection of premalign ant and malignant conditions of the uterine cervix. It is not a diagnostic procedure a nd should not be used as the sole means of detecting cervical cancer. Both false- positiv e and false-negative reports do occur. Depending on your risk status, a Pap smear eulalia uld be obtained and evaluated every one to three years. Initial evaluation performed by Naty MACK CT(ASCP) 05/30/11 Final Interpretation electronically signed by: Naty MACK CT(ASCP) 05/30/11 144 6 -- -- DEPARTMENT OF PATHOLOGY, [address] [place] [address] [facility] Permit #[id number] Tamara Chua M.D. Solid Die Cutter Dir maria dolores -- 28 PREADMISSION TESTING SAMPLES FOR BLOOD BANK WILL BE HELD FOR 14 DAYS FROM THE DATE OF COLLECTION *IF* THE FOLLOWING CRITERIA ARE MET: 1) THE PATIENT HAS *NOT* BEEN IN THE LAST 3 MONTHS. 2) THE PATIENT HAS *NOT* BEEN TRANSFUSED IN THE LAST 3 MONTHS. PREADMISSION TESTING SAMPLES WILL *NOT* BE HELD FOR 14 DAYS FROM PATIENTS WHO IN THE LAST 3 MONTHS: 1) HAVE BEEN 2) HAVE BEEN TRANSFUSED THESE PATIENTS *MUST* BE COLLECTED WITHIN 3 DAYS OF THE SURGERY DATE. 29 Lymphopenia % 30 Warning: A positive result is not useful for establishing a diagnosis of syphilis. In most situations, such a result may reflect a prior treated infection; a negative result can exclude a diagnosis of syphilis except for incubating or early primary disease. 31 FINAL INTERPRETATION: No HIV antibody is detected. . This information has been disclosed to you from confidential records which are protected by [place] State law. State law prohibits you from making further disclosure of this information without the specific written consent of the person to whom it pertains, or as otherwise permitted by law. Any unauthorized further disclosure in violation of state law may result in a fine or residential sentence or both. General authorization for the release of medical or other information is not, except in limited circumstances set forth in Part 63, Title 10, of [facility], sufficient authorization for further disclosure. Disclosure of confidential HIV information that occurs as the result of a general authorization for the release of medical or other information will be in violation of the state law and may result in a fine or a residential sentence. . 32 NO MEMBRANE RUPTURE 33 THE URINE SPECIMEN WAS TESTED AT THE LISTED CUTOFFS: DRUG CLASS TEST LEVEL (NG/ML) AMPHETAMINES 300 BARBITUATES 200 BENZODIAZEPINE METABOLITES 200 COCAINE METABOLITES 300 CANNABINOIDS 25 OPIATES 200 PCP 25 THIS IS A SCREENING PROCEDURE. POSITIVE RESULTS ARE NOT CONFIRMED. SPECIMEN WAS RECEIVED WITHOUT CHAIN OF CUSTODY. RESULTS SHOULD BE USED FOR MEDICAL PURPOSES ONLY. . 34 PRELIMINARY: NO GROWTH DAY 1 (<1,000 CFU/mL) Procedures Date Code Description Status 03/21/2018 34659 Echography Transvaginal Completed 03/21/2018 47317 Insert Intrauterine Device Completed 03/09/2014 06563 Delivery Only Completed 03/09/2014 24459 Delivery Routine Completed 03/09/2014 70831 Salpingo-Oophorectomy Completed 03/09/2014 55102 Ligation/Transection Fallopian Tubes During Surgery Completed 02/12/2014 39145 Echography Uterus Limited Completed 01/21/2014 23588 Non-Stress Test Completed 08/13/2013 09678 OB Ultrasound First Trimester Completed 07/21/2010 69166 Delivery Only Completed 07/21/2010 72843 Delivery Only Completed 07/06/2010 48004 Non-Stress Test Completed Encounters Type Date Location Provider Dx Diagnosis Office Visit 10/29/2017 [facility] Hailey Stein MD Z01.419 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 towel 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 11:00a (general) (routine) w/o abn findings N92.0 Excessive and frequent menstruation with regular cycle Office Visit 10/22/2016 9:30a [facility] Office Hailey Stein Z01.419 Encntr for towel weaver MD exam (general) (routine) w/o abn findings N92.6 Irregular menstruation, unspecified Z90.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, unilateral Office Visit 10/19/2015 11:00a [facility] Hailey Stein 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.419 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) (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) w/o abn findings Z12.4 Encounter for screening for malignant neoplasm of cervix Z90.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, unilateral Office Visit 08/30/2014 11:30a [facility] Office Hailey Stein, V72.31 Routine Collection Team Lead MD Examination V76.2 Screening Malignant Neoplasm Cervix Office Visit 03/03/2014 10:00a [facility] Office Hailey Stein V72.83 Examination MD Preoperative Other Spec 654.23 Delivery Previous Antepartum Cond Or Compl V04.81 Need For Prophylactic Vaccination & Inoculation/Influenza Office Visit 12/02/2013 2:00p [facility] Office January Harrison, 788.1 Dysuria ANP-C Office Visit 11/24/2013 10:40a [facility] Office Shawn Cardenas 462 Pharyngitis Acute Tamara Putnam Office Visit 04/16/2013 10:00a [facility] Office Judie Herman, 640.00 Threatened CNM Episode Of Care Unspec Or N/A Office Visit 02/17/2013 10:30a [facility] Office Alisa Smith V72.31 Routine Collection Team Lead MASTER WELDER Examination V76.2 Screening Malignant Neoplasm Cervix Office Visit 02/14/2012 10:00a [facility] Office Alisa Smith V72.31 Routine Collection Team Lead MASTER WELDER Examination V74.5 Screening Examination Venereal Disease V76.2 Screening Malignant Neoplasm Cervix 616.10 Vaginitis & Vulvovaginitis Unspec Office Visit 05/29/2011 11:20a [facility] Office Alisa Smith NP V76.2 Screening Malignant Neoplasm Cervix Office Visit 07/11/2010 2:00p [facility] Bailey V72.83 Examination MD Lloyd Preoperative Other Spec V22.1 Supervison Of Normal Other Office Visit 07/06/2010 1:59p Delivery Bailey Desai V23.9 High Risk Unspec Plan of Treatment Future Appointment(s):04/22/2018 10:45 am - Hailey Stein MD at [facility]
[2018-04-03 12:11] LABS: ABS Basophils 0 10^3/ul (0-0.2); ABS Eosinophils 0 10^3/ul (0-0.6); ABS Lymphocytes 1.3 10^3/ul (1.0-4.8); ABS Monocytes 0.8 10^3/ul (0-0.8); ABS Neutrophils 7.5 10^3/ul (1.5-7.7); ABS Nucleated RBC 0 10^3/ul; Eosinophil % 0.2 % (0-6); Hematocrit 37 % (35-47); Hemoglobin 12.6 g/dl (12.0-16.0); Lymphocyte % 13.9 % (25-47); Mean Corpuscular HGB Conc 34 g/dl (31-36); Mean Corpuscular Hemoglobin 30 pg (27-31); Mean Corpuscular Volume 88 fL (80-97); Mean Platelet Volume 7.2 um3 (7.4-10.4); Nucleated Red Blood Cells % 0; Platelet Count 286 10^3/ul (150-450); Red Cell Distribution Width 14 % (10.5-15); White Blood Count 9.7 10^3/ul (3.5-10.8)
[2018-04-03] MEDS ORDERED: Iohexol 300* (CONTRAST) 10 ML SDV IV ONE (12:54)
--- NOTE | 2018-04-03 13:33 | RAD ---
HISTORY: dental abscess COMPARISONS: None TECHNIQUE: Multiple contiguous axial CT scans were obtained of the face with intravenous contrast, with coronal and sagittal multiplanar reformations. FINDINGS: BONES: There is no displaced fracture or dislocation. The orbital rim is intact. The zygomatic arch is intact. The pterygoid plates are intact. There is periapical cyst of the left maxillary molar on the left. There is a small loculated fluid collection along the mandibular margin measuring 0.2 x 0.7 x 0.8 cm in size. ORBITS: The globes are round. The optic nerves are symmetric. The extraocular musculature is normal. There is no post septal or intraconal inflammatory change. There is no retrobulbar hematoma. PARANASAL SINUSES: The paranasal sinuses are clear. BRAIN AND SOFT TISSUE: As noted above, there is a small loculated fluid collection along the mandibular margin on the left at the level of the periapical abscess measuring up to 0.8 cm in size with associated stranding of the adjacent fat and thickening of the platysma fascia. OTHER: None. IMPRESSION: SMALL LOCULATED FLUID COLLECTION ALONG THE LEFT MANDIBULAR BODY, AT THE LEVEL OF A PERIAPICAL ABSCESS OF THE LAST MANDIBULAR MOLAR CONSISTENT WITH AN ODONTOGENIC ABSCESS. THERE IS ASSOCIATED INFLAMMATORY CHANGES ADJACENT SOFT TISSUES.
[2018-04-03 14:15] VITALS: BP 105/74
== END 2018-04-03 14:14 | disposition home or self-care (01) ==
LOC: ED 10:50
DX: K04.7 Periapical abscess without sinus (principal)
CPT/HCPCS: 36415; 70487; 80053; 85025; 96374; 96375; 99282; J1885; Q9967

== ENCOUNTER 2019-08-06 16:53 | Emergency (ER) | payer OTHER ==
[2019-08-06 17:19] VITALS: BP 105/62
--- NOTE | 2019-08-06 17:25 | UC ---
FLU HPI - HPI Summary HPI Summary: 38 yo female presents with flu-like symptoms. She tells me that yesterday she began with fever, fatigue, body aches, cough, and nausea. She states two children in her home have the flu and she is concerned for this today. She has been taking tylenol with good relief of her symptoms. Denies sore throat, rash, SOB, chest pain, abdominal pain, dysuria. - History of Current Complaint Chief Complaint: UCRespiratory Stated Complaint: FEVER,COUGH Time Seen by Provider: 08/06/19 17:25 Hx Obtained From: Patient Hx Last Menstrual Period: iud Onset/Duration: Sudden Onset Severity Currently: Moderate Severity Initially: Moderate Pain Intensity: 6 Pain Scale Used: 0-10 Numeric - Allergy/Home Medications Allergies/Adverse Reactions: Allergies Allergy/AdvReac Type Severity Reaction Status Date / Time diphenhydramine Allergy Numbness Verified 04/03/18 11:02 [From Benadryl] Home Medications: Home Medications Acetaminophen TAB* [Tylenol TAB*] 975 mg PO Q6H PRN 08/06/19 [History Confirmed 08/06/19] PMH/Surg Hx/FS Hx/Imm Hx - Additional Past Medical History Additional PMH: None - Surgical History Surgical History: Yes Surgery Procedure, Year, and Place: [place]. WISDOM TEETH REMOVAL - Family History Known Family History: Positive: Hypertension - Social History Occupation: Employed Full-time Lives: With Family Alcohol Use: None Substance Use Type: None Smoking Status (MU): Never Smoked Tobacco - Immunization History Most Recent Influenza Vaccination: unknown Most Recent Tetanus Shot: 02/12/14 Most Recent Pneumonia Vaccination: none Review of Systems All Other Systems Reviewed And Are Negative: No Constitutional: Positive: Fever, Fatigue, Other - Body aches Skin: Positive: Negative Eyes: Positive: Negative ENT: Positive: Negative Respiratory: Positive: Cough Cardiovascular: Positive: Negative Gastrointestinal: Positive: Nausea Genitourinary: Positive: Negative Neurological/Mental Status: Positive: Negative Psychological: Positive: Negative Physical Exam - Summary Physical Exam Summary: GENERAL: NAD. WDWN. No pain distress. SKIN: No rashes, sores, lesions, or open wounds. HEENT: Head: AT/NC Eyes: EOM intact. Conjunctiva clear without inflammation or discharge. Ears: Hearing grossly normal. TMs intact, no bulging, erythema, or edema. Nose: Nasal mucosa pink and moist. NTTP maxillary and frontal sinus. Throat: Posterior oropharynx without exudates, erythema, or tonsillar enlargement. Uvula midline. NECK: Supple. Nontender. No lymphadenopathy. CHEST: CTAB. No r/r/w. No accessory muscle use. Breathing comfortably and in no distress. CV: RRR. Pulses intact. Cap refill <2seconds NEURO: Alert. PSYCH: Age appropriate behavior. Triage Information Reviewed: Yes Vital Signs: Initial Vital Signs Temp 98.4 F 08/06/19 17:16 Pulse 56 08/06/19 17:16 Resp 16 08/06/19 17:16 BP 105/62 08/06/19 17:16 Pulse Ox 100 08/06/19 17:16 Laboratory Tests 08/06/19 17:38 Influenza B (Rapid) Positive H Vital Signs Reviewed: Yes Flu Course/Dx - Course Course Of Treatment: Exam WNL. POC flu positive. Advised rest and supportive care - Differential Dx/Diagnosis Provider Diagnosis: Influenza Discharge ED - Sign-Out/Discharge Documenting (check all that apply): Patient Departure All imaging exams completed and their final reports reviewed: No Studies - Discharge Plan Condition: Stable Disposition: HOME Patient Education Materials: Influenza (ED) Referrals: Sree Pratt MD [Primary Care Provider] - Additional Instructions: Most people with the flu recover within one to two weeks without treatment. However, serious complications of the flu can occur. Go to the ER immediately if you: -- You feel short of breath or have trouble breathing -- You have pain or pressure in your chest or stomach -- You have signs of being dehydrated, such as dizziness when standing or not passing urine -- You feel confused -- You cannot stop vomiting or you cannot drink enough fluids There are several groups of people who are at increased risk for flu complications. These include women, young children (<5 years of age and especially <2 years of age), people older than 65 years of age, and people with certain diseases such as chronic lung disease (such as asthma), heart disease, diabetes, immunosuppressing conditions (such as HIV infection or transplantation), and some other diseases. Treat symptoms Treating the symptoms of influenza can help you to feel better but will not make the flu go away faster. -- Rest until the flu is fully resolved, especially if the illness has been severe. -- Fluids Drink enough fluids so that you do not become dehydrated. One way to international trade compliance manager if you are drinking enough is to look at the color of your urine. Normally, urine should be light yellow to nearly colorless. If you are drinking enough, you should pass urine every three to five hours. -- Acetaminophen (sample brand name: Tylenol) can relieve fever, headache, and muscle aches. Aspirin and medicines that include aspirin (eg, bismuth subsalicylate [sample brand name: Pepto-Bismol]) are not recommended for children under 18 because aspirin can lead to a serious disease called Martinez syndrome. -- Cough medicines are not usually helpful; cough usually resolves without treatment. We do not recommend cough or cold medicine for children under age 6 years. Antiviral treatment Antiviral medicines can be used to treat or prevent influenza. When used as a treatment, the medicine does not eliminate flu symptoms, although it can reduce the severity and duration of symptoms by about one day. Not every person with influenza needs an antiviral medicine, but some people do; the decision is based upon several factors. If you are severely ill and/or have risk factors for developing complications of influenza, you will need an antiviral agent. People who are only mildly ill and have no risk factors for complications usually do not need to be treated with antiviral medication. - Billing Disposition and Condition Condition: STABLE Disposition: Home
[2019-08-06 17:41] LABS: Influenza B Molecular POSITIVE (Negative)
== END 2019-08-06 17:55 | disposition home or self-care (01) ==
LOC: UCEAST 16:53
DX: J11.1 Influenza due to unidentified influenza virus with other respiratory manifestations (principal); Z88.8 Allergy status to other drugs, medicaments and biological substances
CPT/HCPCS: 99211; G0463